=== PATIENT | female | born 1945 | race Caucasian/White ===

== ENCOUNTER 2016-08-07 10:50 | Emergency (ER) | payer MEDICAID ==
[~2016-08-07] VITALS: Ht 152.4 cm; Wt 68.0 kg
[~2016-08-07 10:50] MED LIST: LIPITOR20 MG PO; LOTENSIN10 MG PO; NORCO 10/325 MG1 TAB PO; NORVASC10 MG PO; ORETIC25 MG PO; OXYCONTIN10 MG PO
[2016-08-07 11:08] VITALS: BP_SYST 152; BP_SYST 157; BP_DIAS 108; BP_DIAS 94
[2016-08-07] MEDS ORDERED: ASPIR 8181 M1 PO (11:15)
--- NOTE | 2016-08-07 11:29 | NUR ---
Patient ambulated to bed 3 after providing a urine specimen. RN evaluating patient at bedside.
--- NOTE | 2016-08-07 11:30 | NUR ---
70F BIB SELF C/O COUGH X 1 MONTH; PT STATES PRODUCTIVE COUGH W/ WHITE SPUTUM; STATES WENT TO SEE PMD X 2 WEEKS AGO, BUT SYMPTOMS CONTINUE WHEN MEDS WEAR OFF. PT C/O PRESSURE TO BL CHEST WITH COUGH, RADIATES TO UPPER BACK, 7/10 X 1 MONTH; BL LUNG SOUNDS CLEAR/DIMINISHED, RR EVEN/UNLABORED AT THIS TIME; A&OX4, PT DENIES N/V/D AT THIS TIME; SKIN IS WARM/DRY/INTACT; STEADY GAIT; PT RESTING IN BED W/ HOB ELEVEATED AND IN LOWEST POSITION; POSITIONED FOR COMFORT; ER MD MADE AWARE OF STATUS. WILL CONTINUE TO MONITOR.
--- NOTE | 2016-08-07 11:36 | NUR ---
Dr. Gil evaluating patient at bedside.
[2016-08-07] MEDS ORDERED: IPRATROPIUM 0.02% 0.5 MG/2.5 ML NEBU INH ONE ×2 (11:40→13:45)
[2016-08-07] MEDS ORDERED: ALBUTEROL 0.083% 2.5 MG/3 ML NEBU INH ONE ×2 (11:40→13:45)
--- NOTE | 2016-08-07 11:46 | NUR ---
Breathing treatment administered by respiratory therapist at bedside.
[2016-08-07 15:35] VITALS: BP 165/97
--- NOTE | 2016-08-07 15:35 | NUR ---
Patient discharged with BP 165/93; ER MD DR. FERNANDEZ AWARE; PT ASYMPTOMATIC S/S OF HEADACHE, DIZZINESS, OR HYPERTENSION AT THIS TIME. Written and verbal after care instructions given and explained. Patient alert, oriented and verbalized understanding of instructions. Ambulatory with steady gait. All questions addressed prior to discharge. ID band removed. Patient advised to follow up with PMD. Rx of AZITHROMYCIN 250MG, TRAMADOL HYDROCHLORIDE 50MG & ALBUTEROL 90MCG/ACTUATION INHALATION given. Patient educated on indication of medication including possible reaction and side effects. Opportunity to ask questions provided and answered.
== END 2016-08-07 15:35 | disposition home or self-care (01) ==
LOC: MED 10:50
DX: J42 Unspecified chronic bronchitis (principal); I10 Essential (primary) hypertension; Z90.49 Acquired absence of other specified parts of digestive tract
CPT/HCPCS: 36415; 71010; 80053; 82553; 83880; 84484; 85025; 93005; 94640; 99285; J7613; J7644; Q0092

== ENCOUNTER 2017-03-11 09:20 | Emergency (ER) | payer MEDICAID ==
[~2017-03-11] VITALS: Ht 149.9 cm; Wt 76.7 kg
[~2017-03-11 09:20] MED LIST changes: +AMLO10TA PO; +ASPI81EC98 PO; +ATOR20TA PO; +BENA10TA25 PO; -LIPITOR20 MG PO; -LOTENSIN10 MG PO; -NORCO 10/325 MG1 TAB PO; -NORVASC10 MG PO; +ORE25 PO; -ORETIC25 MG PO; -OXYCONTIN10 MG PO
[2017-03-11 09:25] VITALS: BP 182/112
--- NOTE | 2017-03-11 09:32 | NUR ---
PATIENT AMBULATED TO ER BED 6.
--- NOTE | 2017-03-11 09:32 | NUR ---
PATIENT PRESENTS TO ED WITH PRURITUS/RASH TO BACK CHEST FACE X 2 DAYS--DENIES SOB NO SWELLING NOTED . PT STATES . DENIES N/V/D; SKIN IS PINK/WARM/DRY; AAOX4 WITH EVEN AND STEADY GAIT; LUNGS CLEAR BL; HR EVEN AND REGULAR; PT DENIES ANY FEVER, CP, SOB, OR COUGH AT THIS TIME; PATIENT STATES PAIN OF 0/10 AT THIS TIME; VSS; PATIENT POSITIONED FOR COMFORT; HOB ELEVATED; BEDRAILS UP X2; BED DOWN. ER MD MADE AWARE OF PT STATUS.
--- NOTE | 2017-03-11 09:35 | NUR ---
PATIENT BEING EVALUATED BY DR. DOCKERY.
[2017-03-11] MEDS ORDERED: HYDROCHLOROTHIAZIDE 25 MG TAB PO SCH (10:20)
[2017-03-11] MEDS ORDERED: FAMOTIDINE 20 MG TAB PO ONE (10:20)
[2017-03-11] MEDS ORDERED: BENAZEPRIL 10 MG TAB PO SCH (10:20)
[2017-03-11] MEDS ORDERED: LORATADINE 10 MG TAB PO ONE (10:20)
[2017-03-11 11:47] VITALS: BP 165/98
--- NOTE | 2017-03-11 11:47 | NUR ---
Patient discharged with v/s stable. Written and verbal after care instructions given and explained. Patient alert, oriented and verbalized understanding of instructions. Ambulatory with steady gait. All questions addressed prior to discharge. ID band removed. Patient advised to follow up with PMD. Rx of LOTENSIN, PEPCID, CLARITIN, HYDROCHLOROTHIAZIDE given. Patient educated on indication of medication including possible reaction and side effects. Opportunity to ask questions provided and answered.
== END 2017-03-11 11:47 | disposition home or self-care (01) ==
LOC: MED 09:20
DX: T78.49XA Other allergy, initial encounter (principal); I10 Essential (primary) hypertension; E78.5 Hyperlipidemia, unspecified; Z79.899 Other long term (current) drug therapy; X58.XXXA Exposure to other specified factors, initial encounter
CPT/HCPCS: 93005; 99284

== ENCOUNTER 2017-03-12 14:14 | Emergency (ER) | payer MEDICAID ==
[~2017-03-12] VITALS: Ht 152.4 cm; Wt 76.2 kg
[2017-03-12 15:22] VITALS: BP 174/98
--- NOTE | 2017-03-12 16:05 | NUR ---
Patient ambulated to [facility]3 to be evaluated as fast track by Dr. Cruz. RN evaluating patient.
--- NOTE | 2017-03-12 16:11 | NUR ---
Dr. Cruz evaluating patient as fast track in OF3.
--- NOTE | 2017-03-12 16:18 | NUR ---
PATIENT PRESENTS TO ED WITH C/O ITCHING THROAT, CHEST, AND BACK; DENIES N/V/D OR PAIN;HX OF HTN, HYPERLIPIDEMIA;RX OF BENAZEPRIL 10MG BID, HYDROCHLOROTHIAZIDE 25MG QAM, FAMOTIDINE 40MG QD, LORATADINE 10MG QD . AAOX4 WITH EVEN AND STEADY GAIT; LUNGS CLEAR BL; HR EVEN AND REGULAR; PT DENIES ANY FEVER, CP, SOB, OR COUGH AT THIS TIME; PATIENT STATES PAIN OF 0/10 AT THIS TIME;PATIENT POSITIONED FOR COMFORT; HOB ELEVATED; BEDRAILS UP X2; BED DOWN. ER MD MADE AWARE OF PT STATUS.
[2017-03-12] MEDS ORDERED: diphenhydrAMINE 50 MG CAP PO ONE (16:20)
[2017-03-12] MEDS ORDERED: FAMOTIDINE 20 MG TAB PO ONE (16:20)
[2017-03-12] MEDS ORDERED: predniSONE 20 MG TAB PO ONE (16:20)
--- NOTE | 2017-03-12 16:55 | NUR ---
PT REFUSED BENADRYL;MEDS WAS WASTED IN PHARMACEUTICAL BIN;ER NOTIFIED
[2017-03-12] MEDS ORDERED: hydrOXYzine HCL 25 MG TAB PO ONE (17:10)
--- NOTE | 2017-03-12 17:37 | NUR ---
ATARAX WAS NOT GIVEN;MEDS IS NOT AVAILABLE;ER NOTIFIED;
[2017-03-12 17:38] VITALS: BP 144/88
--- NOTE | 2017-03-12 17:38 | NUR ---
Patient discharged with v/s stable. Written and verbal after care instructions given and explained. Patient alert, oriented and verbalized understanding of instructions. Ambulatory with steady gait. All questions addressed prior to discharge. ID band removed. Patient advised to follow up with PMD. Rx of MEDROL DOSEPAK given. Patient educated on indication of medication including possible reaction and side effects. Opportunity to ask questions provided and answered.
== END 2017-03-12 17:38 | disposition home or self-care (01) ==
LOC: MED 14:14
DX: L50.9 Urticaria, unspecified (principal); I10 Essential (primary) hypertension
CPT/HCPCS: 99283; J7512; Q0163